=== PATIENT | female | born 1990 | race American Indian/Alaskan Native ===

== ENCOUNTER 2019-08-22 09:20 | Emergency (ER) | payer OTHER, SELFPAY ==
--- NOTE | 2019-08-22 09:33 | Event Note ---
ED Screening Note ED Screening Note: AWAKENED FROM SLEEP WITH SEVERE CHEST PAIN. NAUSEA. PMH CHRONIC BACK PAIN ON PAIN MEDS AND NERVE PILLS PER PT RX NONE THC ONLY NO SURGERIES NO HX DVT/PE; NO TRAUMA This initial assessment/diagnostic orders/clinical plan/treatment(s) is/are subject to change based on patients health status, clinical progression and re- assessment by fellow clinical providers in the ED. Further treatment and workup at subsequent clinical providers discretion. Patient/guardian urged not to elope from the ED as their condition may be serious if not clinically assessed and managed. Initial orders include: 12 LEAD CHEST XRAY LABS TO ROOM 9
--- NOTE | 2019-08-22 09:45 | Emergency Department Report ---
ED Shortness of Breath HPI - General Chief Complaint: Dyspnea/Respdistress Stated Complaint: SOB Time Seen by Provider: 08/22/19 09:30 Source: patient Mode of arrival: Ambulatory Limitations: No Limitations - History of Present Illness Initial Comments: CC: "I am having a hard time breathing." HPI: Ms. Coulter is a 28-year-old female with history of chronic back pain who presents with sudden onset this morning severe shortness of breath and chest pa in which awakened her from sleep 4-5 AM. She has had dry cough. Denies fever. She has been working in a [employer] setting. There has been sick contacts. No fever. No travel. Severe shortness of breath at this time. Chest feels tight. Denies wheezing. No history of oral contraceptive or hormone use. Only significant family history of brain tumor in father which was benign. No history of premature cardiac disease in the family. MD Complaint: shortness of breath, cough, chest pain -: Sudden, This morning Consistency: constant Improves With: nothing Worsens With: nothing Known History Of: other (No previous history of heart or lung disease.) Associated Symptoms: cough - Related Data Previous Rx's Medication Instructions Recorded Last Taken Type DOXYCYCLINE Hyclate [Vibramycin 100 mg PO Q12HR 7 Days #14 capsule 08/22/19 Unknown Rx CAP] Allergies Allergy/AdvReac Type Severity Reaction Status Date / Time No Known Allergies Allergy Unverified 08/22/19 09:29 ED Review of Systems ROS: Stated complaint: SOB Other details as noted in HPI Comment: All other systems reviewed and negative Constitutional: denies: diaphoresis, fever Respiratory: cough, shortness of breath Cardiovascular: chest pain ED Past Medical Hx - Past Medical History Previous Medical History?: Yes Additional medical history: Chronic back pain - Surgical History Past Surgical History?: No - Family History Family history: other (Father has history of benign brain tumor) - Social History Smoking Status: Never Smoker - Medications Home Medications: Home Medications Medication Instructions Recorded Confirmed Last Taken Type DOXYCYCLINE Hyclate [Vibramycin 100 mg PO Q12HR 7 Days #14 capsule 08/22/19 Unknown Rx CAP] ED Physical Exam - General Limitations: No Limitations General appearance: alert, other (Bent over breathing deeply and rapidly) - Head Head exam: Present: atraumatic, normocephalic - Eye Eye exam: Present: normal appearance - ENT ENT exam: Present: mucous membranes moist - Neck Neck exam: Present: normal inspection, full ROM - Respiratory Respiratory exam: Present: normal lung sounds bilaterally, respiratory distress. Absent: wheezes, rales - Cardiovascular Cardiovascular Exam: Present: regular rate, normal rhythm, normal heart sounds. Absent: systolic murmur, diastolic murmur, rubs, gallop - GI/Abdominal GI/Abdominal exam: Present: soft, normal bowel sounds. Absent: distended, tenderness, guarding, rebound - Extremities Exam Extremities exam: Present: normal inspection - Neurological Exam Neurological exam: Present: alert, oriented X3 - Psychiatric Psychiatric exam: Present: normal affect, anxious - Skin Skin exam: Present: warm, dry, intact, normal color. Absent: rash ED Course Vital Signs 08/22/19 09:31 Temperature 99.8 F H Respiratory 18 Rate ED Medical Decision Making - Lab Data Result diagrams: 08/22/19 09:48 08/22/19 09:48 - Radiology Data Radiology results: report reviewed CT angiogram: No evidence of pulmonary embolism negative CTA of the chest no significant parenchymal abnormality in the lungs Chest radiograph: No acute findings according to radiology report - Medical Decision Making Patient had extensive work-up for severe chest pain shortness of breath. N egative troponin. I do not suspect pericarditis myocarditis ACS. CT angiogram chest negative for pneumonia and pulmonary embolism. Considering current COVID 19 pandemic, she is at high risk for infection. She understood that she sick self quarantine self isolate for the next 14 days. Treated for acute bronchitis which is consideration with leukocytosis. Of note d-dimer LDH ferritin CRP all within normal limits. Chemistry within normal limits. Critical care attestation.: If time is entered above; I have spent that time in minutes in the direct care of this critically ill patient, excluding procedure time. ED Disposition Clinical Impression: Acute bronchitis, Suspected 2019 novel coronavirus infection Disposition: DC- TO HOME OR SELFCARE Is pt being admited?: No Does the pt Need Aspirin: No Condition: Stable Instructions: Acute Bronchitis (ED), COVID-19 Additional Instructions: You must self isolate self quarantine for the next 14 days. Prescriptions: DOXYCYCLINE Hyclate [Vibramycin CAP] 100 mg PO Q12HR 7 Days #14 capsule Forms: Work/School Release Form(ED)
[2019-08-22 10:23] LABS: Basophils % (Auto) 0.1 % (0.0-1.8); Eosinophils % (Auto) 0.2 % (0.0-4.3); Hematocrit 36.2 % (30.3-42.9); Hemoglobin 12.7 gm/dl (10.1-14.3); Lymphocytes # (Auto) 1.1 K/mm3 (1.2-5.4); Lymphocytes % (Auto) 6.9 % (13.4-35.0); Mean Corpuscular HGB Conc 35 % (30-34); Mean Corpuscular Volume 84 fl (79-97); Monocytes # (Auto) 0.5 K/mm3 (0.0-0.8); Platelet Count 282 K/mm3 (140-440); Red Blood Count 4.33 M/mm3 (3.65-5.03); Red Cell Distribution Width 12.4 % (13.2-15.2)
[2019-08-22 10:49] LABS: Alanine Aminotransferase 14 units/L (7-56); Albumin 4.5 g/dL (3.9-5); BUN/Creatinine Ratio 16; Blood Urea Nitrogen 13 mg/dL (7-17); Calcium 9.6 mg/dL (8.4-10.2); Hemolysis Index 11
[2019-08-22 10:50] LABS: C-Reactive Protein 0.2 mg/dL (0.00-1.30)
--- NOTE | 2019-08-22 11:13 | XRay Report ---
CHEST 1 VIEW INDICATION: Chest Pain. COMPARISON: None FINDINGS: Support devices: None. Heart: Within normal limits. Lungs/Pleura: No acute air space or interstitial disease. Additional findings: None. IMPRESSION: 1. No acute findings. Signer Name: Gennaro Sena MD Signed: 08/22/2019 11:08 AM Workstation Name: [id number]
[2019-08-22] MEDS ORDERED: HYDROcodone/ACETAMINOPHEN 5-325 MG TAB PO ONE (11:25)
--- NOTE | 2019-08-22 12:11 | Cat Scan Report ---
CT angio chest INDICATION / CLINICAL INFORMATION: chest pain shortness of breath. TECHNIQUE: Axial CT images were obtained after injection of IV contrast using CTA protocol. 3 plane MIP / 3D rec onstructions were produced. All CT scans at this location are performed using CT dose reduction for A LATRICIA by means of automated exposure control. COMPARISON: None available. FINDINGS: Following the administration of intravenous contrast, no filling defects are seen in the main pulmona ry arteries or their branches. No significant parenchymal abnormality is seen in the lungs. No enlarg ed mediastinal or hilar lymph nodes are identified. IMPRESSION: No evidence of pulmonary embolus. Negative CTA of the chest Signer Name: Miles Reyes MD FACR Signed: 08/22/2019 12:06 PM Workstation Name: [id number]
[2019-08-22] MEDS ORDERED: predniSONE 20 MG TAB PO ONE (12:23)
[2019-08-22] MEDS ORDERED: IPRATROPIUM/ALBUTEROL SULFATE 3 ML AMPUL.NEB IH ONE (12:23)
[2019-08-22] MEDS ORDERED: DOXYCYCLINE 100 MG CAP PO ONE (12:23)
[2019-08-22 14:29] VITALS: BP 122/79
== END 2019-08-22 14:31 | disposition home or self-care (01) ==
LOC: ED 09:20
DX: J20.9 Acute bronchitis, unspecified (principal); Z20.828 Contact with and (suspected) exposure to other viral communicable diseases; Z79.899 Other long term (current) drug therapy
CPT/HCPCS: 36415; 71045; 71275; 80053; 82728; 82947; 83615; 84145; 84484; 84703; 85025; 85379; 86140; 93005; 94640; 99285; J7512; Q9967